=== PATIENT | female | born 1990 | race American Indian/Alaskan Native ===

== ENCOUNTER 2016-08-01 21:43 | Emergency (ER) | payer OTHER ==
[2016-08-01 22:23] LABS: Bilirubin,Urine NEG (Negative); Blood,Urine LG (Negative); Ketones,Urine 20 mg/dL (Negative); Leukocyte Esterase,Urine NEG (Negative); Mucus,Urine FEW /HPF; Nitrite,Urine NEG (Negative); Protein,Urine <15 mg/dL mg/dL (Negative); RBC,Urine < 1.0 /HPF (0.0-6.0); Urobilinogen,Urine < 2.0 mg/dL (<2.0); WBC,Urine < 1.0 /HPF (0.0-6.0)
[2016-08-01 22:38] LABS: Basophils % (Auto) 0.6 % (0.0-1.8); Eosinophils % (Auto) 1.4 % (0.0-4.3); Hematocrit 39.5 % (30.3-42.9); Hemoglobin 13.4 gm/dl (10.1-14.3); Mean Corpuscular HGB Conc 34 % (30-34); Mean Corpuscular Hemoglobin 31 pg (28-32); Mean Corpuscular Volume 91 fl (79-97); Platelet Count 287 K/mm3 (140-440); Red Blood Count 4.34 M/mm3 (3.65-5.03); Red Cell Distribution Width 12.8 % (13.2-15.2); White Blood Count 8.4 K/mm3 (4.5-11.0)
[2016-08-01 22:58] LABS: Alanine Aminotransferase 18 units/L (7-56); Albumin 4.5 g/dL (3.9-5); Albumin/Globulin Ratio 1.5 %; Alkaline Phosphatase 58 units/L (35-129); BUN/Creatinine Ratio 28.33; Blood Urea Nitrogen 17 mg/dL (7-17); Calcium 9.4 mg/dL (8.4-10.2); Carbon Dioxide 24 mmol/L (22-30); Glucose 90 mg/dL (65-100); Lipase 29 units/L (13-60); Total Protein 7.6 g/dL (6.3-8.2)
[2016-08-01 22:59] LABS: Anion Gap 21 mmol/L; Chloride 98.1 mmol/L (98-107); Potassium 4.3 mmol/L (3.6-5.0); Sodium 139 mmol/L (137-145)
--- NOTE | 2016-08-02 01:04 | Ultrasound Report ---
FINAL REPORT PROCEDURE: US OB TRANSVAGINAL TECHNIQUE: Real-time transabdominal and transvaginal sonography of the uterus, placenta, amniotic fluid, adnexa, and fetus was performed with image documentation. Measurements were obtained to determine age/size. M-mode Doppler was used to document heartbeat. CPT 55048 and 63239 HISTORY: / vaginal bleeding COMPARISON: No prior studies are available for comparison. FINDINGS: Gestational Sac: There is a small gestational sac that measures 2.5 millimeters. This would correspond to gestational age of less than 5 weeks. No pole or yolk sac is seen. Amniotic fluid: Normal. Cervix: Normal. Right Ovary: Normal. Left Ovary: Small cyst on the left ovary measures 1 centimeter IMPRESSION: A small gestational sac is identified within the uterus. This corresponds to gestational age of less than 5 weeks. No pole or yolk sac is seen. The patient should have followup studies which could include serial beta HCG levels and possibly repeat ultrasound in approximately 14 days. Small dominant cyst left ovary measures 1 centimeter.
--- NOTE | 2016-08-02 02:43 | Emergency Department Report ---
HPI - General Chief Complaint: Abdominal Pain Time Seen by Provider: 08/02/16 02:34 - HPI HPI: Patient is a 25-year-old female presents to ED complaining of vaginal bleeding 2 days. Patient states yesterday morning she began to notice some light vaginal bleeding that has gotten progressively heavier today. Patient states last menstrual period was Jul 09 7016 and states she took a positive test today. This is patient's second . Patient states last was so while ago and she had a miscarriage at about 5 weeks gestation. Patient mentioned she has light left sided pelvic cramping. Patient denies nausea/vomiting/fever/chills/shortness of breath/dizziness/ lightheadedness/blurry vision/headache ED Past Medical Hx - Medications Home Medications: Home Medications Medication Instructions Recorded Confirmed Last Taken Type Acetaminophen/Codeine [Tylenol 1 tab PO Q6H PRN #20 tab 08/02/16 Unknown Rx /Codeine # 3 tab] Progesterone,Micronized 200 mg PO BID #20 capsule 08/02/16 Unknown Rx [Progesterone] ED Review of Systems ROS: Stated complaint: VAG BLEED PREG UNK WKS Other details as noted in HPI Constitutional: denies: chills, fever Eyes: denies: eye pain, eye discharge, vision change ENT: denies: ear pain, throat pain, dental pain, hearing loss, congestion Respiratory: denies: cough, shortness of breath, wheezing Cardiovascular: denies: chest pain, palpitations Endocrine: no symptoms reported Gastrointestinal: denies: abdominal pain, nausea, vomiting, diarrhea Genitourinary: other (vaginal bleeding). denies: urgency, dysuria, frequency, hematuria, discharge Musculoskeletal: denies: back pain, joint swelling, arthralgia Skin: denies: rash, lesions Neurological: denies: headache, weakness, paresthesias Psychiatric: denies: anxiety, depression Hematological/Lymphatic: denies: easy bleeding, easy bruising Physical Exam - Physical Exam Vital Signs: Vital Signs 08/01/16 21:48 Temperature 98.9 F Pulse Rate 85 Blood Pressure 137/87 O2 Sat by Pulse 100 Oximetry Physical Exam: GENERAL: Alert and oriented x3, no apparent distress, Normal Gait, atraumatic. HEAD: Head is normocephalic and a-traumatic. NECK: Supple. Non edematous, No carotid bruits. No lymphadenopathy or thyromegaly. No C-spine tenderness LUNGS: Symetrical with respiration, No wheezing, no rales or crackles, CTAB. HEART: S1, S2 present, regular rate and rhythm without murmur, no rubs, no gallops. ABDOMEN: No organomegaly was noted,Positive bowel sounds, soft, and non- distended. . Nontender to palpation on all Quadrants, NO CVA tenderness. GENITOURINARY: External genitalia without erythema, exudate or discharge. Vaginal vault is with moderate dark red blood. Cervix is of normal color without lesion. Cervical os slightly open with blood seeping out. bleeding noted. Uterus is noted to be of normal size and nontender. No cervical motion tenderness. No masses are palpated. The adnexa are without masses or tenderness. SKIN: Warm and dry, No lesions, No ulceration or induration present. ED Course Vital Signs 08/01/16 21:48 Temperature 98.9 F Pulse Rate 85 Blood Pressure 137/87 O2 Sat by Pulse 100 Oximetry ED Medical Decision Making - Lab Data Result diagrams: 08/01/16 22:25 08/01/16 22:25 - Radiology Data Radiology results: report reviewed, image reviewed FINAL REPORT PROCEDURE: US OB TRANSVAGINAL TECHNIQUE: Real-time transabdominal and transvaginal sonography of the uterus, placenta, amniotic fluid, adnexa, and fetus was performed with image documentation. Measurements were obtained to determine age/size. M-mode Doppler was used to document heartbeat. CPT 45209 and 05127 HISTORY: / vaginal bleeding COMPARISON: No prior studies are available for comparison. FINDINGS: Gestational Sac: There is a small gestational sac that measures 2.5 millimeters. This would correspond to gestational age of less than 5 weeks. No pole or yolk sac is seen. Amniotic fluid: Normal. Cervix: Normal. Right Ovary: Normal. Left Ovary: Small cyst on the left ovary measures 1 centimeter IMPRESSION: A small gestational sac is identified within the uterus. This corresponds to gestational age of less than 5 weeks. No pole or yolk sac is seen. The patient should have followup studies which could include serial beta HCG levels and possibly repeat ultrasound in approximately 14 days. Small dominant cyst left ovary measures 1 centimeter. Transcribed By: [facility] Dictated By: SUMEET ONTIVEROS MD Electronically Authenticated By: SUMEET ONTIVEROS MD Signed Date/Time: 08/02/16 0059 - Medical Decision Making 25-year-old female presents with vaginal bleeding recent positive test ED course: CBC, BMP, urine test, hCG quantitative, urinalysis, serial ultrasound obtained A positive test, quantitative 492. ultrasound shows gestational sac with no pole suggestive of less than 5 weeks to station. Other findings include left ovarian cyst measuring 1 cm Discussed all findings with patient. After vaginal exam patient is currently bleeding with partially open cervical os. Discussed possible inevitable miscarriage with patient. Discussed the possibility of threatened and to follow-up with [facility] in 2 days. Discussed the patient is any worsening or new symptoms arise to return to the ED Patient is alert and oriented 3 she understands instructions given. Discussed possibility of having a complete miscarriage. Vital signs are normal patient is in no acute distress patient understands all that was discussed Critical care attestation.: If time is entered above; I have spent that time in minutes in the direct care of this critically ill patient, excluding procedure time. ED Disposition Clinical Impression: Inevitable spontaneous , Left ovarian cyst Disposition: TO HOME OR SELFCARE Is pt being admited?: No Does the pt Need Aspirin: No Condition: Stable Instructions: Spontaneous Miscarriage (ED), Threatened Miscarriage (ED), Abdominal Pain (ED) Additional Instructions: Return to ED E's used to experiencing excessive amount of bleeding and pain. Follow-up with [facility] in 2-3 days for repeat Quant level and ultrasound Prescriptions: Acetaminophen/Codeine [Tylenol /Codeine # 3 tab] 1 tab PO Q6H PRN #20 tab PRN Reason: Pain Progesterone,Micronized [Progesterone] 200 mg PO BID #20 capsule Referrals: PRIMARY CARE, [Primary Care Provider] - 3-5 Days STEPHANIA BE MD [Referring] - 3-5 Days ROXANN DIEGO MD [Referring] - 3-5 Days NEEL VIEIRA MD [Staff Physician] - 3-5 Days DAX SIMEON MD [Staff Physician] - 3-5 Days ROMIE QUESADA MD [Staff Physician] - 3-5 Days Forms: Accompanied Note, Work/School Release Form(ED) Time of Disposition: 04:28
[2016-08-02 04:58] VITALS: BP 136/90
== END 2016-08-02 04:58 | disposition home or self-care (01) ==
LOC: ED 21:43
DX: O03.9 Complete or unspecified spontaneous abortion without complication (principal); N83.202 Unspecified ovarian cyst, left side
CPT/HCPCS: 36415; 76801; 76817; 80053; 81001; 81025; 83690; 84702; 85025

== ENCOUNTER 2016-09-30 19:22 | Emergency (ER) | payer OTHER ==
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
[2016-10-01] MEDS ORDERED: TORADOL IM ONE (02:52)
[2016-10-01 06:05] VITALS: BP 116/78
== END 2016-10-01 04:00 | disposition home or self-care (01) ==
LOC: ED 19:22
DX: M25.512 Pain in left shoulder (principal); M79.602 Pain in left arm; M54.6 Pain in thoracic spine; V49.49XA Driver injured in collision with other motor vehicles in traffic accident, initial encounter; Y93.9 Activity, unspecified; Y92.9 Unspecified place or not applicable
CPT/HCPCS: 70450; 72070; 73030; 73060; 81025; 96372; 99284; J1885